=== PATIENT | female | born 1935 | race Hispanic/Latino ===

== ENCOUNTER 2017-09-07 18:01 | Emergency (ER) | payer MEDICARE ==
[~2017-09-07] VITALS: Ht 157.5 cm; Wt 65.8 kg
[~2017-09-07 18:01] MED LIST: AMBIEN PAK5 MG PO; AMLODIPINE BESYL5 MG PO; ARICEPT5 MG PO; BUTALB-ACETAMI1 EACH PO; BUTALBITAL-ASA1 EACH PO; CYMBALTA30 MG; CYMBALTA30 MG PO; DIPHENHYDRAMINE25 M1 PO; ESTRACE42.5 GM TOP; GABAPENTIN100 MG PO; KLOR-CON 1010 MEQ; LIDODERM700 MG TOP; LISINOPRIL10 MG PO; MACROBID PO; MELATONIN3 MG PO; MIRTAZAPINE15 MG PO; OMEPRAZOLE40 MG; OSPHENA PO; PAROXETINE HCL20 MG PO; PROPRANOLOL; PROPRANOLOL HCL40 MG PO; SODIUM BICARBO650 MG PO; TRAZODONE HCL50 MG PO; ULTRAM50 MG PO; VITAMIN D1000 UNI1 PO; Z FLUOXETINE HCL PO; Z.0.BENTYL10 MG PO; Z.0.DESYREL50 MG PO; Z.0.ENABLEX15 MG; Z.0.LEXAPRO10 MG PO; Z.0.TOPAMAX100 MG PO
== END 2017-09-07 20:45 | disposition left against medical advice (07) ==
LOC: ER 18:01
DX: R53.1 Weakness (principal)
CPT/HCPCS: 99281

== ENCOUNTER 2018-11-03 04:25 | Emergency (ER) | payer MEDICARE ==
--- OUTSIDE RECORDS SUMMARY | 2018-11-03 04:30 | XMS REPORT ---
Author [facility] Address Unknown Phone Unavailable Care Team Providers Care Web Merchant Name Role Phone Antonia DE LA ROSA Unavailable Unavailable Payers Payer Name Policy Type Policy Number Effective Date Expiration Date Problems This patient has no known problems. Allergies, Adverse Reactions, Alerts Allergy Name Allergy Type Status Severity Reaction(s) Onset Date Inactive Date Treating Clinician Comments No Known Allergies DA Active U 2018-01-26 00:00:00 Medications This patient has no known medications. Results Test Description Test Time Test Comments Text Results Atomic Results Result Comments THORACIC SPINE AP LA [place] [address] Patient Name: KHAI MACKEY MR #: [id number] : 1935 Age/Sex: 82/F Req #: [id number] Adm Physician: EARL DE LA ROSA MD Ordered by: NAMITA PIERRE MD Report #: [id number] Location: MED/SURG2 Room/Bed: [facility] Procedure: [id number] DX/THORACIC SPINE AP LA Exam Date: 09/14/17 Exam Time: 1100 REPORT STATUS: Signed PROCEDURE: X-RAY THORACIC SPINE, TWO VIEWS COMPARISON: None. INDICATIONS: MID TO LOWER BACK PAIN FINDINGS: The vertebral body and disc space heights are well-maintained. There is good spinal alignment. Minimal disc space narrowing and marginal osteophytosis throughout the thoracic spine most notably at T8- T9. Incidental note of linear fibrotic change in the perihilar region of the left lung.. CONCLUSION: No acute osseous abnormalities. Mild degenerative disc changes of the thoracic spine. Dictated by: Hector Giles M.D. on 09/14/2017 at 11:49 Electronically approved by: Hector Giles M.D. on 09/14/2017 at 11:49 Dictated By: HECTOR GILES MD 114 Transcribed By: GABRIELE on 09/14/17 1149 COPY TO: NAMITA PIERRE MD SP LUMBAR, COMPLETE MIN 4VW [place] [address] Patient Name: KHAI MACKEY MR #: [id number] : 1935 Age/Sex: 82/F Req #: [id number] [facility] Physician: EARL DE LA ROSA MD Ordered by: EARL DE LA ROSA MD Report #: [id number] Location: [place] [address] Room/Bed: [facility] Procedure: [id number] DX/SP LUMBAR, COMPLETE MIN 4VW Exam Date: 09/14/17 Exam Time: 1100 REPORT STATUS: Signed PROCEDURE: L-SPINE COMPLETE COMPARISON: CT abdomen without contrast 02/12/2017. INDICATIONS: LOWER BACK PAIN FINDINGS: There are 5 [id number] lumbar-type vertebral bodies. No acute, displaced fracture or subluxation. No pars interarticularis defects on the oblique radiographs. There is mild multilevel disc space narrowing, endplate sclerosis, and marginal osteophytosis affecting L2-L3 through L5-S1. Bilateral facet arthropathy at L4-L5 and L5-S1. 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 CONCLUSION: No acute osseous abnormalities. Multilevel degenerative disc changes and dege nerative facet arthropathy of the lumbar spine. Dictated by: Hector Giles M.D. on 09/14/2017 at 11:46 Electronically approved by: Hector Giles M.D. on 09/14/2017 at 11:46 Dictated By: HECTRO GILES MD [id number] Transcribed By: GABRIELE on 09/14/17 1146 COPY TO: EARL DE LA ROSA MD CHEST SINGLE (PORTABLE) [place] [address] Patient Name: KHAI MACKEY MR #: [id number] : 1935 Age/Sex: 82/F Req #: [id number] Adm Physician: Ordered by: ALCIDES NAVARRO MD Report #: [id number] Location: ER Room/Bed: Procedure: [id number] DX/CHEST SINGLE (PORTABLE) Exam Date: Exam Time: REPORT STATUS: Signed PROCEDURE: CHEST SINGLE (PORTABLE) COMPARISON: None. INDICATIONS: WEKSNESS. DIZZINESS. LEG PAIN FINDINGS: Lung volumes are low with vascular crowding in the lung bases. No consolidation, pleural effusion, or pneumothorax. Cardiomediastinal contour and pulmonary vasculature are within normal limits for portable, AP technique. No acute osseous abnormality. CONCLUSION: Low lung volumes without acute cardiopulmonary abnormality. Dictated by: Hector Giles M.D. on 09/11/2017 at 13:05 Electronically approved by: Hector Giles M.D. on 09/11/2017 at 13:05 Dictated By: HECTOR GILES MD 1306 Transcribed By: GABRIELE on 09/11/17 1308 COPY TO: ALCIDES NAVARRO MD
== END 2018-11-03 04:45 | disposition left against medical advice (07) ==
LOC: ER 04:25
DX: Z04.3 Encounter for examination and observation following other accident (principal)